=== PATIENT | female | born 2000 | race Caucasian/White ===

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

== ENCOUNTER 2019-08-09 13:09 | Emergency (ER) | payer BC ==
[2019-08-09 14:14] VITALS: BP 143/62
--- NOTE | 2019-08-09 14:51 | UC ---
Lower Extremity/Ankle HPI - HPI Summary HPI Summary: 19 yo female kicked a wall with her fight foot yesterday playing indoor soccer able to bear with with a limp +swollen - History of Current Complaint Chief Complaint: UCLowerExtremity Stated Complaint: RIGHT FOOT INJURY Time Seen by Provider: 08/09/19 14:23 Hx Obtained From: Patient Hx Last Menstrual Period: 07/29/2019 Onset/Duration: Gradual Onset Severity Initially: Mild Severity Currently: Mild Pain Intensity: 3 Pain Scale Used: 0-10 Numeric Aggravating Factor(s): Standing Alleviating Factor(s): Rest Able to Bear Weight: No Feet (Multiple View): 1 - swollen/ecchymotic - Allergies/Home Medications Allergies/Adverse Reactions: Allergies Allergy/AdvReac Type Severity Reaction Status Date / Time No Known Allergies Allergy Verified 08/09/19 14:10 Home Medications: Home Medications Ibuprofen TAB* [Motrin TAB* 800 MG] 800 mg PO Q8H PRN 08/09/19 [History Confirmed 08/09/19] Norgestrel-Ethinyl Estradiol [[id number] Tablet] 1 each PO DAILY 08/09/19 [ History Confirmed 08/09/19] PMH/Surg Hx/FS Hx/Imm Hx Previously Healthy: Yes - Surgical History Surgical History: None - Family History Known Family History: Negative: Cardiac Disease, Hypertension - Social History Alcohol Use: Occasionally Substance Use Type: None Smoking Status (MU): Never Smoked Tobacco - Immunization History Most Recent Influenza Vaccination: no Review of Systems All Other Systems Reviewed And Are Negative: Yes Constitutional: Positive: Negative Skin: Positive: Bruising Eyes: Positive: Negative ENT: Positive: Negative Respiratory: Positive: Negative Cardiovascular: Positive: Negative Gastrointestinal: Positive: Negative Genitourinary: Positive: Negative Motor: Positive: Negative Neurovascular: Positive: Negative Musculoskeletal: Positive: Arthralgia - right first MTP Neurological/Mental Status: Positive: Negative Psychological: Positive: Negative Physical Exam Triage Information Reviewed: Yes Appearance: Well-Appearing, No Pain Distress, Well-Nourished Vital Signs: Initial Vital Signs Temp 98.4 F 08/09/19 14:08 Pulse 64 08/09/19 14:08 Resp 16 08/09/19 14:08 BP 143/62 08/09/19 14:08 Pulse Ox 100 08/09/19 14:08 Vital Signs Reviewed: Yes Eyes: Positive: Conjunctiva Clear ENT: Positive: Normal ENT inspection. Negative: Nasal congestion, Nasal drainage, Tonsillar swelling, Tonsillar exudate, Trismus, Muffled voice, Hoarse voice, Uvula midline Dental Exam: Normal Neck: Positive: Supple, Nontender Respiratory: Positive: Lungs clear, Normal breath sounds, No respiratory distress Cardiovascular: Positive: RRR, No Murmur Musculoskeletal: Positive: No Edema, Other: - see image Neurological Exam: Normal Neurological: Positive: Alert Psychological Exam: Normal Skin Exam: Normal Diagnostics - Radiology No standard instances Radiology Interpretation Completed By: Radiologist Summary of Radiographic Findings: no fx Lower Extremity Course/Dx - Differential Dx/Diagnosis Provider Diagnosis: Contusion of right foot Discharge ED - Sign-Out/Discharge Documenting (check all that apply): Patient Departure All imaging exams completed and their final reports reviewed: Yes - Discharge Plan Condition: Stable Disposition: HOME Patient Education Materials: Contusion in Adults (ED), Post Surgical Shoe (ED) Referrals: Gabi Barkley MD [Medical Doctor] - 2 Weeks (ask for Camron Hinds) in 1-2 weeks if not better) Additional Instructions: rest elevate ice tylenol or advil for pain - Billing Disposition and Condition Condition: STABLE Disposition: Home
== END 2019-08-09 15:17 | disposition home or self-care (01) ==
LOC: UCCORT 13:09
DX: S90.31XA Contusion of right foot, initial encounter (principal); W22.01XA Walked into wall, initial encounter; Y93.66 Activity, soccer; Y92.9 Unspecified place or not applicable
CPT/HCPCS: 99213; G0463